=== PATIENT | female | born 1990 | race Caucasian/White ===

== ENCOUNTER 2019-03-22 02:26 | Inpatient (IN) | payer OTHER ==
[2019-03-22] VITALS (25 sets, daily range): BP systolic 90–124; BP diastolic 51–67
[~2019-03-22] VITALS: Ht 154.9 cm; Wt 54.5 kg
[2019-03-22] MEDS ORDERED: ONDANSETRON 4MG/2ML VIAL (J2405) IV PRN ×4 (04:00→21:15)
[2019-03-22 04:11] LABS: HEMATOCRIT 28.1 % (36.0-47.0); HEMOGLOBIN 8.8 g/dl (12.0-15.5); MEAN CORPUSCULAR HEMOGLOBIN 26.5 pg (27.0-33.0); MEAN CORPUSCULAR HGB CONC 31.3 g/dl (32.0-36.5); MEAN CORPUSCULAR VOLUME 84.6 fl (80.0-96.0); PLATELET COUNT, AUTOMATED 226 10^3/uL (150-450); RED BLOOD COUNT 3.32 10^6/uL (4.00-5.40); WHITE BLOOD COUNT 9.1 10^3/uL (4.0-10.0)
[2019-03-22] MEDS ORDERED: ceFAZolin 1GM INJ (J0690 PER 500MG) As Ordered ONE (04:25)
[2019-03-22 04:29] LABS: APPEARANCE, URINE HAZY (CLEAR); BACTERIA, URINE AUTO 1+ (NEGATIVE); BILIRUBIN, URINE AUTO NEGATIVE (NEGATIVE); BLOOD, URINE BLOOD NEGATIVE (NEGATIVE); COLOR, URINE YELLOW (YELLOW); GLUCOSE, URINE (UA) AUTO NEGATIVE (NEGATIVE); KETONE, URINE AUTO 2+ mg/dL (NEGATIVE); LEUKOCYTE ESTERASE, URINE AUTO NEGATIVE (NEGATIVE); NITRITE, URINE AUTO NEGATIVE (NEGATIVE); PROTEIN, URINE AUTO NEGATIVE (NEGATIVE); RBC, URINE AUTO 1 /HPF (0-3); SPECIFIC GRAVITY URINE AUTO 1.011 (1.002-1.035); SQUAMOUS EPITHELIAL CELL UR AU 9 /HPF (0-6); TRANSITIONAL EPITHELIAL AUTO 1 /HPF; UROBILINOGEN, URINE AUTO 0.2 mg/dL (0.0-2.0); WBC, URINE AUTO 3 /HPF (0-3)
[2019-03-22] MEDS ORDERED: PROMETHAZINE INJ 25 MG/ML VIAL (J2550) IV ONE ×2 (04:30→10:00)
[2019-03-22] MEDS ORDERED: BUTORPHANOL 2 MG/ML INJ (J0595) IV ONE ×2 (04:30→10:00)
[2019-03-22] MEDS: LR 1,000 ML IV SCH ×2 (06:30→15:46)
--- NOTE | 2019-03-22 08:40 | REP ---
Clinical: suspected oligohydramnios. Comparison: None . Findings: Examination demonstrates a single live intrauterine in breech presentation. motion is identified by technologist. Placenta is noted fundal and grade grade II without evidence for placenta previa or abruption. No significant amniotic fluid is appreciated and findings suggest oligohydramnios. No evidence for nuchal cord. Gestational age by LMP 35 weeks 1 day with AINSLEY 04/25/2019 . Gestational age by current measurements 33 weeks 4 days with AINSLEY 05/06/2019 . FHR equals 131 beats per minute. Amniotic fluid index: 0.00 Umbilical cord SD ratio: 2.24 (2.00 - 3.00). Estimated weight 2273 grams grams ( 95th percentile). Impression: Single live intrauterine in breech presentation. Oligohydramnios noted (DUANE=0.00) Electronically Signed by Jose Alfredo Borges MD 03/22/2019 08:31 A
--- NOTE | 2019-03-22 09:34 | HPE ---
DATE OF ADMISSION: 03/22/2019 Carmen is a 28-year-old 6, para 4-0-1-4 at 35-1/7 weeks' gestation with an estimated date of confinement (EDC) of 04/25/2019 based on last menstrual period and confirmed by first-trimester ultrasound. She presents to labor and delivery today via ambulance from transfer [facility] for contractions. She has been given terbutaline 0.2 mg, Procardia 10 mg times four doses, and initial dose of betamethasone for lung motility. She reports to me that her contractions started 03/20/2019, at approximately 2200 and have continued throughout the duration. She denies vaginal bleeding. She did have a question of rupture of membranes. She has been ruled out not to be ruptured both in [facility] and here today. The fetus has been active. OBSTETRIC HISTORY: 01/2011, 38 weeks' gestation, spontaneous vaginal delivery, 6 pound 1 ounce female. April 2014, 38 weeks, spontaneous vaginal delivery, 5 pound 14 ounces male. May 2015, 39-6/7 weeks, spontaneous vaginal delivery, 6 pound 14 ounces male. April 2017, ectopic with left salpingectomy. January 2018, 37 weeks' gestation, 6 pound 4 ounces male. OBSTETRIC LABORATORIES: That are available: O+, antibody screen negative, rapid plasma reagin (RPR) negative, rubella immune, HIV negative, gonorrhea and chlamydia negative, hepatitis B surface antigen negative, cystic fibrosis carrier screening negative. Group B streptococcus (GBS) is unknown. Quad screen positive for Down syndrome. She did not receive a center consult due to noncompliance with care. Her care initiated in the first trimester at [facility]. course complicated, e-cigarette use throughout , size less than dates, breech presentation, noncompliance with care. PAST MEDICAL HISTORY: Asthma, chronic back pain. SURGERIES: Tympanostomy, tonsils and adenoids, left salpingectomy. FAMILY HISTORY: Chronic obstructive pulmonary disease (COPD), transient ischemic attack (TIA), diabetes, hypertension. SOCIAL HISTORY: The patient is single. She reports smoking electronic cigarettes. Denies alcohol and drug use. No history of any sexually-transmitted infections and denies history of abuse: physical, sexual, and emotional. ALLERGIES: No known drug allergies. MEDICATIONS: - Cipro for reported treatment of urinary tract infection (UTI) - vitamins - ferrous sulfate OBJECTIVE: Temperature 97.8, pulse 81, respirations 18, BP is 91/55. She is alert and oriented times three. She does appear moderately uncomfortable with these contractions. Her abdomen is gravid, breech presentation noted on ultrasound from [facility] with an amniotic fluid index (DUANE) of 5.7 cm. Estimated weight by Maurisio's 5 pounds. heart rate is 110 upon arrival with moderate variability. There is positive accelerations, negative decelerations. She is kalayn every 2-3 minutes lasting 40-60 seconds. They do palpate moderate. Sterile speculum examination: Negative pooling, negative Valsalva, negative Nitrazine, and negative fern. Sterile vaginal examination: Fingertip dilated, thick, ballottable, posterior. No bloody show with examination. The cervix is soft. ASSESSMENT: Intrauterine at 35-1/7 weeks. heart rate category 1. contractions. Breech presentation. Oligohydramnios. PLAN: Admit the patient to labor and delivery. Bathroom privileges. Continue lactated Ringer at 125 mL/h. Continue Ancef as started. Routine laboratories, CBC, RPR, type and screen. I did obtain a GBS culture and sensitivity. The patient does request something for pain management. Intravenous (IV) Stadol and Phenergan have been ordered. Second betamethasone due approximately 2100 on 03/22/2019. Will continue to monitor and observe for change.
[2019-03-22 10:25] LABS: AMPHETAMINES URINE REFLEX NEGATIVE (NEGATIVE); BARBITURATES URINE REFLEX NEGATIVE (NEGATIVE); BENZODIAZEPINES URINE REFLEX NEGATIVE (NEGATIVE); CANNABINOIDS URINE REFLEX NEGATIVE (NEGATIVE); COCAINE METABOLITE URINE REFLE NEGATIVE (NEGATIVE); METHADONE URINE REFLEX NEGATIVE (NEGATIVE); PHENCYCLIDINE URINE REFLEX NEGATIVE (NEGATIVE)
[2019-03-22] MEDS ORDERED: BETAMETHASONE SOLUSPAN 6MG/ML INJ 5ML (J0702) IM ONE (10:30)
[2019-03-22 10:55] LABS: OPIATES URINE REFLEX PENDING CONFIRMATION (NEGATIVE)
[2019-03-22] MEDS ORDERED: ceFAZolin SOD 1 GM in D5W MINI-BAG PLUS 50 ML IV SCH (12:00)
[2019-03-22] MEDS ORDERED: BICITRA 30ML SOLN UDC PO ONE (17:15)
[2019-03-22] MEDS ORDERED: LACTATED RINGER'S 1000 ML IV STA (17:15)
[2019-03-22] MEDS ORDERED: OXYTOCIN INJ 10 UNITS/ML VIAL (J2590) As Ordered ONE (19:35)
[2019-03-22] MEDS ORDERED: MORPHINE PRES-FREE INJ 10 MG/10 ML VIAL (J2274) As Ordered ONE (19:35)
[2019-03-22] MEDS ORDERED: METOCLOPRAMIDE INJ 10MG/2ML VIAL (J2765) IV PRN (20:09)
[2019-03-22] MEDS ORDERED: NALBUPHINE HCL 10 MG/ML AMP (J2300) IV PRN (20:09)
[2019-03-22] MEDS ORDERED: NALOXONE INJ 0.4 MG/1 ML VIAL (J2310) IV PRN ×2 (20:09)
[2019-03-22] MEDS ORDERED: diphenhydrAMINE INJ 50MG/ML VIAL (J1200) IV PRN (20:09)
[2019-03-22] MEDS ORDERED: PHENYLephrine HCL 500 MCG/5 ML (100MCG/ML) SYRINGE (J2370) As Ordered ONE (20:11)
[2019-03-22] MEDS ORDERED: ePHEDrine SULFATE 25 MG/5 ML(5MG/ML) SYRINGE As Ordered ONE (20:11)
[2019-03-22] MEDS ORDERED: MIDAZOLAM INJ 2 MG/2 ML VIAL (J2250) As Ordered ONE (20:24)
[2019-03-22] MEDS ORDERED: ONDANSETRON 4MG/2ML VIAL (J2405) As Ordered ONE (20:28)
[2019-03-22] MEDS ORDERED: RHOGAM 300 MCG (1500 IU) INJ (J2790) IM SCH (21:00)
[2019-03-22] MEDS ORDERED: PERCOCET 5MG/325MG TAB PO PRN (21:00)
[2019-03-22] MEDS ORDERED: MEASLES,MUMPS,RUBELLA VACCINE INJ (MMR-II) (90707) SC SCH (21:00)
[2019-03-22] MEDS ORDERED: DOCUSATE SODIUM 100 MG CAP PO PRN (21:00)
[2019-03-22] MEDS ORDERED: KETOROLAC 30 MG/ML VIAL (J1885) IV PRN (21:15)
[2019-03-22] MEDS ORDERED: KETOROLAC 30 MG/ML VIAL (J1885) As Ordered ONE (21:35)
[2019-03-22] MEDS: KETOROLAC 30 MG/ML VIAL (J1885) IV SCH (21:38)
[2019-03-22] MEDS ORDERED: fentaNYL 100 MCG/2 ML INJECTION (J3010) As Ordered ONE (21:58)
[2019-03-22] MEDS: fentaNYL 100 MCG/2 ML INJECTION (J3010) IV PRN ×4 (22:00→22:15)
[2019-03-23] VITALS (7 sets, daily range): BP systolic 97–123; BP diastolic 51–78
[2019-03-23] MEDS: LR 1,000 ML IV SCH ×2 (03:00→12:50)
[2019-03-23] MEDS: KETOROLAC 30 MG/ML VIAL (J1885) IV SCH ×2 (03:19→08:16)
[2019-03-23] MEDS ORDERED: OXYC1TAB23 PO (06:50)
[2019-03-23 07:04] LABS: HEMATOCRIT 22.7 % (36.0-47.0); HEMOGLOBIN 7.2 g/dl (12.0-15.5); MEAN CORPUSCULAR HEMOGLOBIN 27.2 pg (27.0-33.0); MEAN CORPUSCULAR HGB CONC 31.7 g/dl (32.0-36.5); MEAN CORPUSCULAR VOLUME 85.7 fl (80.0-96.0); PLATELET COUNT, AUTOMATED 186 10^3/uL (150-450); RED BLOOD COUNT 2.65 10^6/uL (4.00-5.40); WHITE BLOOD COUNT 14.7 10^3/uL (4.0-10.0)
[2019-03-23] MEDS: PRENATAL VITAMINS CHEWABLE TABLET PO SCH (08:15)
[2019-03-23] MEDS: FLUoxetine 10 MG CAP PO SCH (08:16)
--- NOTE | 2019-03-23 09:46 | RO ---
DATE OF PROCEDURE: 03/22/2019 PREPROCEDURE DIAGNOSIS: 35 weeks, breech, severe oligohydramnios, premature rupture of membranes, contractions. POSTPROCEDURE DIAGNOSIS: 35 weeks, breech, severe oligohydramnios, premature rupture of membranes, contractions. PROCEDURE: Primary low transverse section. Right partial salpingectomy. SURGEON: Dr. Lopez Anaya CHARGING BOARD OPERATOR: Dr. Ward Masters ANESTHESIA: Spinal. ESTIMATED BLOOD LOSS: 500 mL. URINE OUTPUT: 150 mL. FINDINGS: 5 pound 0 ounce female infant, Apgars 8 and 9, pete breech position, minimal amniotomy fluid present. Normal uterus, fallopian tubes and ovaries. DESCRIPTION OF PROCEDURE: The patient was taken to the operating room where spinal anesthesia was induced. She was prepped and draped in sterile fashion in the supine position. A Cutler catheter was placed. A Pfannenstiel skin incision was made with the scalpel and carried through to the fascia. The fascia was nicked and extended. The peritoneal cavity was entered. A bladder flap was created. A curvilinear incision was made in the lower uterine segment until membranes were noted. This was extended manually. Membranes were ruptured with a scant amount of amniotic fluid present. The was delivered from the pete breech position using standard maneuvers without difficulty. The cord was doubly clamped and cut. The was handed off to the awaiting airline dispatcher. The placenta was expressed. The uterus was exteriorized and cleared of clots and debris. The uterine incision was closed with #0 Vicryl in a running locked fashion. A second imbricating layer of #0 Vicryl was placed. The uterus was placed back in the abdominal cavity. The paracolic gutters were cleared of clots and debris. Attention was turned to the right fallopian tube which was grasped with a Perez clamp in its mid portion. A window was created in the broad ligament. A segment of tube on either side of the clamp was secured with a free tie of #3-0 chromic and a knuckle of tube was excised and sent to pathology. The left fallopian tube was noted to be surgically absent. The peritoneum was closed with #2-0 Vicryl in a running fashion. The fascia was closed with #0 Vicryl in a running fashion. The deep layer was irrigated and the skin was closed with #4-0 Monocryl subcuticular suture. Sponge, needle and instrument counts were correct. Ward Masters MD, assisted in all aspects of the procedure from beginning to end. He assisted in creating all layers of the incision. He assisted in expulsion of the fetus and closure of all subsequent layers.
[2019-03-23] MEDS: PERCOCET 5MG/325MG TAB PO PRN ×3 (10:29→22:18)
[2019-03-23] MEDS ORDERED: PILL CUTTER 1 EACH XX PRN (10:45)
[2019-03-23] MEDS: IBUPROFEN 800 MG TAB PO SCH (18:03)
[2019-03-24] MEDS: IBUPROFEN 800 MG TAB PO SCH ×3 (02:39→18:58)
[2019-03-24 05:42] VITALS: BP 114/66
--- NOTE | 2019-03-24 07:24 | IPNPDOC ---
Text Note Date of Service The patient was seen on 03/24/19. NOTE Postop #2 Feels well. OOB independently. . Voiding. Adequate pain managemnet on oral meds VSS, afebrile, normotensive Breasts soft Fundus firm, NT Dressing intact, old drainage Lochia rubra light without odor Legs negative Anticipate D/C in am VS,Fishbone, I+O VS, Fishbone, I+O Vital Signs Date Time Temp Pulse Resp B/P (MAP) Pulse Ox O2 Delivery O2 Flow Rate FiO2 03/24/19 05:42 98.9 85 17 114/66 (82 98 I&O- Last 24 Hours up to 6 AM 03/24/19 06:00 Output Total 1200 ml Balance -1200 ml Riddhi Mendoza CNM March 24, 2019 07:24
[2019-03-24] MEDS: PERCOCET 5MG/325MG TAB PO PRN ×3 (07:54→19:47)
[2019-03-24] MEDS: FLUoxetine 10 MG CAP PO SCH (09:00)
[2019-03-24] MEDS: PRENATAL VITAMINS CHEWABLE TABLET PO SCH (10:21)
[2019-03-24 17:34] VITALS: BP 113/66
[2019-03-25] MEDS: IBUPROFEN 800 MG TAB PO SCH ×2 (02:28→09:53)
[2019-03-25 06:00] VITALS: BP 130/81
[2019-03-25] MEDS: PERCOCET 5MG/325MG TAB PO PRN (06:02)
[2019-03-25] MEDS: PRENATAL VITAMINS CHEWABLE TABLET PO SCH (07:38)
[2019-03-25] MEDS: FLUoxetine 10 MG CAP PO SCH (09:00)
[2019-03-25] MEDS ORDERED: IBUP200C33 PO (09:47)
[2019-03-25] MEDS ORDERED: FLUO10CA8 PO (09:47)
[2019-03-25] MEDS ORDERED: COLA100C5 PO (09:47)
[2019-03-25] MEDS ORDERED: PREN29TA4 PO (09:47)
[2019-03-25] MEDS ORDERED: PERCOCET PO (10:03)
[2019-03-26] MEDS ORDERED: OXYC1TAB23 PO (11:09)
[2019-03-26] MEDS ORDERED: IBUP80TA PO (11:28)
--- NOTE | 2019-03-27 21:38 | DSES ---
DATE OF ADMISSION: 03/22/2019 DATE OF DISCHARGE: 03/25/2019 28-year-old G6, P4 female, 35 and 1/7 weeks gestation presents on transfer from [facility] for contractions, kalyan every 2-3 minutes and was uncomfortable. She made no cervical change. She was noted to be in the breech presentation with oligohydramnios at that time with an DUANE of 5.7. She received betamethasone times one dose as well as Procardia to help with contractions. HOSPITAL COURSE: The patient was admitted to [facility] on 03/22/2019. She continues to contract intermittently. Contractions were painful at times. She received a second dose of betamethasone, completed steroid course. There was some question of rupture of membranes because she had been leaking previously. Repeat ultrasound was performed at [facility] which showed an amniotic fluid index of 0. Repeat exam was performed to check for ruptured membranes. Ruptured membranes could not be confirmed but were highly suspected. Due to the fact that the patient was breech presentation, kalyan, amniotic fluid index was 0, a decision was made to proceed with delivery once steroids were completed. On 03/23/2019 the patient underwent primary low transverse section and tubal ligation for a 5 pound 0 ounce female infant, Apgars 8 and 9. Minimal amniotic fluid was present at the time of section. Postoperative course was unremarkable. She had a hemoglobin of 7.2 g/dL. She had good return of bladder and bowel function. She was deemed stable for discharge postoperative day #3. ADMISSION DIAGNOSES: 35 weeks, breech. rupture of membranes. Labor. DISCHARGE DIAGNOSIS: Delivered. PROCEDURES: section. Tubal ligation. DISPOSITION: Patient will followup with Dr. Anaya and 2 weeks. Instructions were repeated.
[2019-03-28 08:06] LABS: Opiates Negative (Cutoff=200)
== END 2019-03-25 10:19 | disposition home or self-care (01) | DRG 540 ==
LOC: M LDI 02:26 → M OBS 22:46
PROVIDERS: ADMIT Advanced Practice Midwife; ATTEND Specialist
PROC: 0UB50ZZ Excision of Right Fallopian Tube, Open Approach (ICD-10-PCS; 2019-03-22)
PROC: 10D00Z1 Extraction of Products of Conception, Low, Open Approach (ICD-10-PCS; principal; 2019-03-22 19:22)
DX: O42.013 Preterm premature rupture of membranes, onset of labor within 24 hours of rupture, third trimester (principal); F17.290 Nicotine dependence, other tobacco product, uncomplicated; Z3A.35 35 weeks gestation of pregnancy; O32.1XX0 Maternal care for breech presentation, not applicable or unspecified; O99.334 Smoking (tobacco) complicating childbirth; Z37.0 Single live birth; Z91.19 Patient's noncompliance with other medical treatment and regimen; Z30.2 Encounter for sterilization